=== PATIENT | female | born 1950 | race Caucasian/White ===

== ENCOUNTER 2018-05-12 12:22 | Outpatient (CLI) | payer MEDICARE | END 2018-05-12 12:23 | disposition home or self-care (01) | LOC: BICMAMMO 12:22 | PROVIDERS: ATTEND Family Medicine | DX: Z12.31 Encounter for screening mammogram for malignant neoplasm of breast (principal) | CPT/HCPCS: 77063; 77067 ==

== ENCOUNTER 2019-07-16 09:46 | Outpatient (CLI) | payer MEDICARE ==
--- NOTE | 2019-07-16 11:57 | MMO ---
Bilateral MAMMO Bilat Screen [facility]. CLINICAL HISTORY: Patient is 69 years old and is seen for screening. The patient has no family history of breast cancer. The patient has no personal history of cancer. VIEWS: The views performed were: bilateral craniocaudal with tomosynthesis and bilateral mediolateral oblique with tomosynthesis. FILMS COMPARED: The present examination has been compared to prior imaging studies performed at [facility] on 01/15/2012, 01/27/2013, 04/08/2014 and 05/12/2018. This study has been interpreted with the assistance of computer-aided detection. MAMMOGRAM FINDINGS: There are scattered fibroglandular densities. There are benign appearing calcifications seen in both breasts. There are no suspicious masses, suspicious calcifications, or new areas of architectural distortion. IMPRESSION: THERE IS NO MAMMOGRAPHIC EVIDENCE OF MALIGNANCY. A ROUTINE FOLLOW-UP MAMMOGRAM IN 1 YEAR IS RECOMMENDED. THE RESULTS OF THIS EXAM WERE SENT TO THE PATIENT. ACR BI-RADS Category 2 - Benign finding MAMMOGRAPHY NOTE: 1. A negative mammogram report should not delay a biopsy if a dominant of clinically suspicious mass is present. 2. Approximately 10% to 15% of breast cancers are not detected by mammography. 3. Adenosis and dense breasts may obscure an underlying neoplasm. Reported by: HENOK DOS SANTOS MD Electonically Signed: [id number]
--- NOTE | 2019-07-16 13:03 | BD ---
DEXA BONE DENSITY STUDY: Date: 07/16/19 HISTORY: Postmenopausal. FINDINGS: Lumbar Spine: BMD (g/cm2) L1 0.860 T-Score: -1.2 L2 1.057 T-Score: +0.3 L3 1.186 T-Score: +0.9 L4 1.176 T-Score: +1.0 Total 1.081 T-Score: +0.3 Left Femoral Neck: 0.719 T-Score: -1.2 Total Femur: 1.100 T-Score: +1.3 IMPRESSION: Osteopenia of the left femoral neck and normal bone mineral density of lumbar spine. The 10 year frac ture risk for a major osteoporotic fracture is 14% and for a hip fracture is 1%. These fracture proba bilities are calculated for an untreated patient. POS: [facility]
== END 2019-07-16 09:47 | disposition home or self-care (01) ==
LOC: BICMAMMO 09:46
PROVIDERS: ATTEND Family Medicine
DX: Z12.31 Encounter for screening mammogram for malignant neoplasm of breast (principal); Z78.0 Asymptomatic menopausal state; M85.89 Other specified disorders of bone density and structure, multiple sites
CPT/HCPCS: 77063; 77067; 77080

== ENCOUNTER 2020-09-06 10:59 | Outpatient (CLI) | payer MEDICARE ==
--- NOTE | 2020-09-06 13:24 | MMO ---
Bilateral MAMMO Bilat Screen [facility]. CLINICAL HISTORY: Patient is 70 years old and is seen for screening. The patient has no family history of breast cancer. The patient has no personal history of cancer. VIEWS: The views performed were: bilateral craniocaudal with tomosynthesis and bilateral mediolateral oblique with tomosynthesis. FILMS COMPARED: The present examination has been compared to prior imaging studies performed at [facility] on 01/27/2013, 04/08/2014, 05/12/2018 and 07/16/2019. This study has been interpreted with the assistance of computer-aided detection. MAMMOGRAM FINDINGS: There are scattered fibroglandular densities. Benign calcifications are noted bilaterally. There are no suspicious masses, suspicious calcifications, or new areas of architectural distortion. IMPRESSION: THERE IS NO MAMMOGRAPHIC EVIDENCE OF MALIGNANCY. A ROUTINE FOLLOW-UP MAMMOGRAM IN 1 YEAR IS RECOMMENDED. THE RESULTS OF THIS EXAM WERE SENT TO THE PATIENT. ACR BI-RADS Category 2 - Benign finding MAMMOGRAPHY NOTE: 1. A negative mammogram report should not delay a biopsy if a dominant of clinically suspicious mass is present. 2. Approximately 10% to 15% of breast cancers are not detected by mammography. 3. Adenosis and dense breasts may obscure an underlying neoplasm. Reported by: JANELL HAND MD Electonically Signed: [id number]
== END 2020-09-06 11:00 | disposition home or self-care (01) ==
LOC: BICMAMMO 10:59
PROVIDERS: ATTEND Family Medicine
DX: Z12.31 Encounter for screening mammogram for malignant neoplasm of breast (principal)
CPT/HCPCS: 77063; 77067

== ENCOUNTER 2021-10-03 13:45 | Outpatient (CLI) | payer MEDICARE | END 2021-10-03 13:46 | disposition home or self-care (01) | LOC: BICMAMMO 13:45 | PROVIDERS: ATTEND Family Medicine | DX: Z12.31 Encounter for screening mammogram for malignant neoplasm of breast (principal); Z13.820 Encounter for screening for osteoporosis; M54.50 Low back pain, unspecified; M53.3 Sacrococcygeal disorders, not elsewhere classified; M47.816 Spondylosis without myelopathy or radiculopathy, lumbar region; M51.36 Other intervertebral disc degeneration, lumbar region; M43.16 Spondylolisthesis, lumbar region; M41.9 Scoliosis, unspecified; M85.89 Other specified disorders of bone density and structure, multiple sites | CPT/HCPCS: 72100; 72202; 77063; 77067; 77080 ==

== ENCOUNTER 2022-05-10 07:58 | Outpatient (CLI) | payer MEDICARE | END 2022-05-10 07:59 | disposition home or self-care (01) | LOC: BICULT 07:58 | PROVIDERS: ATTEND Internal Medicine Nephrology | DX: N18.31 Chronic kidney disease, stage 3a (principal); N28.9 Disorder of kidney and ureter, unspecified; N25.81 Secondary hyperparathyroidism of renal origin; N99.3 Prolapse of vaginal vault after hysterectomy; M89.8X7 Other specified disorders of bone, ankle and foot; K21.9 Gastro-esophageal reflux disease without esophagitis; G47.9 Sleep disorder, unspecified; E78.5 Hyperlipidemia, unspecified; E55.9 Vitamin D deficiency, unspecified; E66.9 Obesity, unspecified; M76.61 Achilles tendinitis, right leg; M25.9 Joint disorder, unspecified; M70.71 Other bursitis of hip, right hip; M19.90 Unspecified osteoarthritis, unspecified site; F32.A Depression, unspecified; G56.01 Carpal tunnel syndrome, right upper limb; Z87.440 Personal history of urinary (tract) infections | CPT/HCPCS: 76770; 93975 ==

== ENCOUNTER 2023-01-03 12:50 | Outpatient (CLI) | payer MEDICARE | END 2023-01-03 12:51 | disposition home or self-care (01) | LOC: BICMAMMO 12:50 | PROVIDERS: ATTEND Family Medicine | DX: Z12.31 Encounter for screening mammogram for malignant neoplasm of breast (principal) | CPT/HCPCS: 77063; 77067 ==

== ENCOUNTER 2024-01-09 10:52 | Outpatient (CLI) | payer MEDICARE | END 2024-01-09 10:53 | disposition home or self-care (01) | LOC: BICMAMMO 10:52 | PROVIDERS: ATTEND Family Medicine | DX: Z12.31 Encounter for screening mammogram for malignant neoplasm of breast (principal) | CPT/HCPCS: 77063; 77067 ==